=== PATIENT | male | born 1980 | race Caucasian/White ===

== ENCOUNTER 2022-03-08 12:56 | Emergency (ER) | payer SELFPAY | END 2022-03-08 14:55 | disposition home or self-care (01) | LOC: JD.ED 12:56 | DX: R07.89 Other chest pain (principal); I10 Essential (primary) hypertension; I25.2 Old myocardial infarction; Z72.0 Tobacco use | CPT/HCPCS: 36415; 71045; 71045-26; 80053; 83735; 83880; 84443; 84484; 85025; 93005; 99285-25 ==